=== PATIENT | male | born 1955 | race Caucasian/White ===

== ENCOUNTER → 2020-07-13 | Outpatient (CLI) | payer MEDICARE, OTHER, SELFPAY ==
--- NOTE | 2020-07-13 09:46 | EKG12_ITS ---
Test Reason : PRE SURGERY Blood Pressure : / mmHG Vent. Rate : 066 BPM Atrial Rate : 066 BPM P-R Int : 114 ms QRS Dur : 084 ms QT Int : 404 ms P-R-T Axes : 051 078 062 degrees QTc Int : 423 ms Normal sinus rhythm Normal ECG Confirmed by CARMEN DEY, JOSH ([id number]), editor book GUERRERO CROW ([id number]) on 07/14/2020 8:01:59 AM Referred By: Addi Blandon Confirmed By:JOSH MORALES MD
[2020-07-13 10:26] LABS: Hematocrit 42.7 % (40-54); Mean Corp Hgb Conc 32.8 g/dL (32-36); Mean Corpuscular Hgb 30.1 pg (27.0-32.0); Mean Corpuscular Volume 91.8 fL (80-94); Mean Platelet Vol. 10.9 fl (6.2-12.0); Platelet Count 183 K/mm3 (150-450); RBC Distribution Width CV 11.2 % (11.6-14.6); RBC Distribution Width SD 37.9 fl (35.1-43.9); Red Blood Count 4.65 M/mm3 (4.6-6.2); White Blood Count 5.5 K/mm3 (4.4-11.0)
[2020-07-13 10:42] LABS: Anion Gap 4 (5-15); BUN 18 mg/dL (7-18); BUN/Creat Ratio 18.2 RATIO (10-20); Calcium,Total 9.1 mg/dL (8.5-10.1); Chloride 104 mmol/L (98-107); Creatinine, Serum 0.99 mg/dL (0.70-1.30); EST Glomerular Filtration Rate 80 mL/min (>60); Est Glom Filt Rate - Afr Amer 97 mL/min (>60); Glucose 87 mg/dL (74-106); Potassium 4.2 mmol/L (3.5-5.1); Sodium Level 137 mmol/L (136-145)
== END | disposition home or self-care (01) ==
PROVIDERS: PCP Internal Medicine; Referring Provider Physician Assistant; Visit Provider Physician Assistant
DX: Z01.810 Encounter for preprocedural cardiovascular examination (principal); Z01.812 Encounter for preprocedural laboratory examination; Z20.822 Contact with and (suspected) exposure to COVID-19
CPT/HCPCS: 36415; 80048; 85027; 87635; 93005; C9803; U0005; U0003

== ENCOUNTER → 2021-03-15 14:08 | Outpatient (CLI) | payer MEDICARE, OTHER, SELFPAY ==
--- NOTE | 2021-03-15 14:22 | CT_ITS ---
STUDY: RIGHT SHOULDER CT SCAN REASON FOR EXAM: Male, 65 years old. PRIMARY OSTEOARTHRITIS RADIATION DOSAGE (If Supplied By Facility): CTDIvol = ( 27.47 ) mGy, DLP = ( 718.22 ) mGycm. Individualized dose optimization techniques were used for this CT.? TECHNIQUE: Axial multidetector CT scan of the right shoulder. Coronal and sagittal reformatted images were obtained. COMPARISON: None. FINDINGS: No acute fracture line. No acute dislocation. No acute bone destruction. Evidence of previous rotator cuff repair (axial image 28 series 3). Moderate acromioclavicular joint arthrosis. Mild/moderate glenohumeral joint arthrosis. Normal visualized clavicle. Normal ribs. Normal scapula. Normal coracoid. Normal acromion. Small glenohumeral joint effusion. Moderate supraspinatus and infraspinatus muscle atrophy (sagittal image 58 series 602). Lung granulomas. COPD/emphysema. CT/Extremity Upper without Contra IMPRESSION: Moderate right shoulder osteoarthritis Evidence of previous rotator cuff repair Moderate supraspinatus and infraspinatus muscle atrophy (potential chronic/recurrent rotator cuff tear) COPD/emphysema with granulomatous Small glenohumeral joint effusion Electronically Signed: Franck Harris DO at 9:20 EDT Tel , Service support ,
== END ==
PROVIDERS: PCP Internal Medicine; Referring Provider Specialist; Visit Provider Specialist
DX: M19.011 Primary osteoarthritis, right shoulder (principal)
CPT/HCPCS: 73200

== ENCOUNTER 2021-05-11 06:39 | Day surgery (SDC) | payer MEDICARE, OTHER, SELFPAY ==
--- NOTE | 2021-04-26 15:15 | HP.PCM_ITS ---
History and Physical History and Physical [facility] Patient Name: Lefty Pearl : 1955 From: [facility] PA-C DATE OF SURGERY: 05/11/2021 SCHEDULED PROCEDURE: right reverse total shoulder arthroplasty HISTORY OF PRESENT ILLNESS: Preoperative history and physical exam was performed on April 25, 2021. This is a 65-year-old male who has had ongoing pain in the right shoulder. Patient underwent a right shoulder arthroscopy with subacromial decompression, resection of distal clavicle, biceps tenotomy and repair of large rotator cuff on July 23, [address] Miguel Moe. Patient is right-hand dominant. Pain is increased with any reaching out in front or overhead. Pain is increased with any lifting. He denies any numbness and tingling. Pain is located over the anterior and lateral right shoulder. Patient has been through previous physical therapy. Patient had a MRI in December 2020 which did reveal complete full- thickness tear of a repaired supraspinatus tendon. He has tried oral prednisone and meloxicam without relief in symptoms. After failing conservative measures and discussing treatment options with Dr. Salvador Westfall, the patient does wish to proceed with a right reverse total shoulder arthroplasty. We are obtaining surgical clearance from the primary care physician Dr. Ospina. Patient denies any chest pain, shortness of breath, fevers chills or recent infections. Patient has a medical history pertinent for hypertension, hypercholesterolemia, and previous history of bipolar. REVIEW OF SYSTEMS: ROS: Const: Reports change in appetite and hard of hearing, but denies fever, vision problems and weight change. CV: Denies chest pain, heart murmur, irregular heartbeat and peripheral vascular disease. Resp: Denies asthma, cough, pneumonia, sleep apnea, SOB, tuberculosis and wheezing. GI: Denies constipation, diarrhea, difficulty swallowing, heartburn, nausea, bloody stools and vomiting. : Urinary: denies incontinence. Musculo: Denies leg swelling, limp, trouble walking and weakness. Skin: Denies Raynaud's, history of shingles and tattoo. Neuro: Denies ambulatory dysfunction, dizziness, numbness/tingling and tremor. Psych: Denies anxiety, depression, insomnia, mental illness and stress. Bran/Lymph: Denies anemia, bleeding/bruising tendency and past transfusion. Reviewed, no changes. PAST MEDICAL HISTORY: Advance Care Plan: Other Directive, LIVING WILL Effective Date: 07/12/2018 PMH: Medical Problems: High Blood Pressure, Arthritis, Hypercholesterolemia, History of Bipolar Accidents: None Surgical Hx: Fistula Removed - (2014) 2X'S Hydrocele Lumbar - (07/09/2019) RODS & SCREWS PLACED RT Shoulder, Arthroscopic Rotator Cuff Repair, ASD, Claviculectomy - (07/23/2020) [facility] @ [facility] Anesthesia Complications: None Assistive Devices: None Reviewed and updated. SOCIAL HISTORY: SH: Marital: .Occupation: Retired.Work Status: Retired.Hand Dominance: Right- handed. Personal Habits: Cigarette Use: Former.Alcohol: Occasionally.Drug Use: Former Illegal Drug User.Enjoy Exercising: Exercises 1-3 X/Week. Reviewed and updated. VITALS: Ht: 71 Wt: 190lb Wt k.184 BMI: 26.5 BP: 126/86 Pulse: 80 Resp: 14 T: 97.2 T: 36.2C Pain Level: 0 ALLERGIES: No Known Drug Allergy MEDICATIONS: Oxycodone HCL 5 mg 1-2 tab by mouth every 4 hours, Zofran 4 mg one by mouth every 8 as needed nausea, Famotidine 20 mg 1 by mouth every day, Meloxicam 15 mg 1 by mouth every day, Lisinopril 10 mg daily, Lamotrigine 200 mg 2 tabs PO daily, Aspirin 81 81 mg 1 po qd, Rosuvastatin Calcium 20 mg 1 po qd, Multi Vitamin 1po daily PRE-OP EXAM: General appearance:NORMAL Other: Eyes: Conjunctivae and lids: NORMAL Pupils: ERR Ears, Nose, Mouth, and Throat: NORMAL Other: Inspection of lips, teeth and gums: NORMAL Other: Neck: Examination of neck: no masses noted. Respiratory: Assessment of respiratory effort: NORMAL Other: Auscultation of lungs: clear to auscultation no wheezes, rhonchi or rales. Cardiovascular: Auscultation of heart: regular rate and rhythm, no murmurs, gallops or rubs. PHYSICAL EXAMINATION: Right shoulder is cool to touch. Erythema or signs of infection. Previous incisions from arthroscopy are well-healed without signs of infection. Patient has a positive Silvino deformity on the right. There is scapular dyskinesia on the right with range of motion. Range of motion: Forward elevation actively on the right 100 and passively 160, internal rotation L2 on the right and T5 on the left, external rotation 60 on the left and 40 on the right. Supraspinatus 3/5 strength on the right and 5/5 left. Sensation intact to light touch. Neurovascularly intact. IMAGING STUDIES: Previous x-rays and MRI reveal a full-thickness rotator cuff tear with previous repair consistent with secondary osteoarthritis. Muscle atrophy appreciated on MRI. IMPRESSION: 1. Right shoulder rotator cuff tear with previous repair and secondary osteoarthritis 2. Hypertension 3. Hypercholesterolemia 4. History of bipolar PLAN: Dr. Salvador Westfall did discuss and review with the patient all treatment options including surgical versus nonsurgical options. Patient does wish to proceed with the above-stated procedure. Potential risks, benefits, and complications of the procedure were discussed in detail including but not limited to , infection, nerve and blood vessel damage, persistent pain, numbness, tingling, paresthesias, blood clot, pulmonary embolism, and requirement for possible further surgery. The patient expressed full understanding and has no further questions for the doctor. Patient does agree to proceed with the above-stated procedure and has signed the surgery consent form. We discussed the current risks associated with COVID 19. This does include the risk of exposure while in the hospital. Patient was reassured local hospitals have low infection rates and are taking all necessary precautions to avoid exposure to patients. In addition, we discussed strategies that can be used to help limit exposure including those that limit the patient's time in the hospital. Also using strategies to limit the patient's need for continued in patient services after being discharged from the hospital. Patient was notified that we will need to comply with any screening or testing the hospital wishes to perform or that surgery may be delayed for any positive results. This dictation was created using voice recognition software. Phonetic and/or grammatical errors may exist. ___ I have re-examined the patient. There are no clinical changes since date of exam. ___ See progress notes for changes. ___ Dictated on admission Date: Time: Signature:
--- NOTE | 2021-05-06 11:12 | EKG12_ITS ---
Test Reason : PRE OP Blood Pressure : / mmHG Vent. Rate : 063 BPM Atrial Rate : 063 BPM P-R Int : 120 ms QRS Dur : 086 ms QT Int : 418 ms P-R-T Axes : 060 076 067 degrees QTc Int : 427 ms Normal sinus rhythm Normal ECG Confirmed by CARMEN DEY, JOSH ([id number]), food expeditor ROSA JOE ([id number]) on 05/09/2021 10:37:12 AM Referred By: Salvador Westfall Confirmed By:JOSH MORALES MD
[2021-05-06 12:17] LABS: Absolute Neutrophil Count 2.9 X10^3/uL (2.0-7.7); Basophil# 0.01 X10^3/uL; Basophil% 0.2 % (0-1); Eosinophil# 0.24 X10^3/uL; Eosinophils% 4.5 % (0-5); Hematocrit 41.5 % (40-54); Hemoglobin 13.7 g/dL (13.0-16.5); Lymphocyte % 30.2 % (19-41); Mean Corpuscular Hgb 30.4 pg (27.0-32.0); Mean Corpuscular Volume 92.2 fL (80-94); Mean Platelet Vol. 10.9 fl (6.2-12.0); Monocyte# 0.53 X10^3/uL; NRBC Flagged by Analyzer 0 % (0-5); Neutrophil # 2.91 X10^3/uL (2.7-7.7); Neutrophil % 54.9 % (47-70); Platelet Count 184 K/mm3 (150-450); RBC Distribution Width CV 10.9 % (11.6-14.6); RBC Distribution Width SD 37.2 fl (35.1-43.9); White Blood Count 5.3 K/mm3 (4.4-11.0)
[2021-05-06 12:42] LABS: Magnesium 2.2 mg/dL (1.6-2.6)
[2021-05-06 13:45] LABS: Albumin, Serum 3.7 g/dL (3.2-5.0); Anion Gap 9 (5-15); BUN 21 mg/dL (7-18); BUN/Creat Ratio 21.1 RATIO (10-20); Calcium,Total 8.9 mg/dL (8.5-10.1); Chloride 105 mmol/L (98-107); EST Glomerular Filtration Rate 79 mL/min (>60); Est Glom Filt Rate - Afr Amer 96 mL/min (>60); Glucose 91 mg/dL (74-106); Potassium 4.4 mmol/L (3.5-5.1); Sodium Level 138 mmol/L (136-145)
[2021-05-11] VITALS (13 sets, daily range): BP systolic 135–172; BP diastolic 70–97; PULSE 68–99; RESP 16–18; TEMP 35.9–36.8; O2SAT 92–97; BMI 25.4
--- NOTE | 2021-05-11 06:56 | PCM.OPRPT ---
Report of Operation Date of Procedure: 05/11/21 Pre-Operative Diagnosis: Right shoulder osteoarthritis with rotator cuff dysfunction Post-Operative Diagnosis: Right shoulder osteoarthritis with rotator cuff dysfunction Surgery/Procedure Performed:: Right reverse total shoulder replacement Description of Surgical Findings:: Stable shoulder Surgeon: Salvador Westfall sports medicine trainer: Ese Coe Type of Anesthesia: General Anesthesiologist: Franck Mcbride Special Medications: 2 g Ancef, 1 g TXA at incision, 1 g TXA closure, 10 mg Decadron Specimen's removed: Bony cuts Estimated Blood Loss (mL): 75 Fluids Replaced: 1000 ML Description of Procedure: Components used 1. Comstock reunion glenoid baseplate 2. Soumya reunion 36 mm, 6mm Glenosphere 3. Soumya reunion 36mm, 4mm humeral liner 4. Comstock reunion reverse TSA humeral adapter tray 4mm 5. Comstock reunion humeral stem primary press-fit 14mm size Brief history/Operative indications: 65 yo M with history of right shoulder pain and cuff tear arthropathy. Patient failed conservative measures as mentioned in the H&P. After discussion of risk and benefits of reverse total shoulder replacement including but not limited to blood loss, DVTs, PEs, nerve vessel damage, infection, general risk of anesthesia including loss of life, instability and stiffness patient demonstrating understanding wish to proceed was able to sign informed consent. Medical clearance was obtained. Procedure: On the date of the procedure, patient's right upper extremity was marked in the preoperative area. Patient was taken back to the operating room where they were placed on the table in the supine position. Anesthesia assumed control of the C-spine and airway, then administered anesthetic. All bony prominences were identified well-padded, the head was secured and the patient was placed in the beachchair position at about 35? inclination. Anesthesia remained in control of the C-spine airway throughout the remainder of the procedure. Patient was then appropriately fastened to the table and the right upper extremity was prepped in a sterile fashion. The surgeons then scrubbed. Upon reentering the room, the right upper extremity was draped in a sterile fashion and the incision was marked out. Timeout was called, everyone agreed upon the side, the site, the procedure to be performed, patient identity and antibiotics given. Incision was taken down through skin and subcutaneous tissue, fat down to fascia. The stripe of the deltopectoral interval and cephalic vein were identified and blunt dissection was used to retract the deltoid. The cephalic vein was retracted laterally. Clavipectoral fascia was then incised and a cobra retractor was placed in the wound. The proximal one third of the pectoralis major insertion was released. Pectoralis tendon insertion was used to tenodesed the biceps tendon which was identified in the bicipital groove. Tenodesis was done with #1 Vicryl. Proximally we followed the biceps tendon after transecting it into the rotator interval. The rotator interval was split and the arm was externally rotated. The split was 1 cm medial to the bicipital groove. Subscapularis tendon was released. We released down the anterior portion of the humeral head and a bhatti elevator was used to release the inferior portion of the humeral head. The arm was externally rotated and the shoulder was dislocated. The humeral head was then cut at its natural retroversion. Once his humeral head cut was made humerus was retracted out of the way and the glenoid was exposed. After exposing the glenoid, the labrum and the remaining proximal biceps were debrided. At this time we are able to view the entire outer edge of the glenoid. A central pin was placed we sequentially reamed over this central pin to 36mm. Once this was completed the central screw was measured and found to be. The glenoid baseplate was screwed into place. Wound was closely irrigated out with normal saline we then drilled sequentially for 2 screws. Screws were placed superiorly and inferiorly and tightened down the screws. Once the screws were appropriately tightened into place the glenoid baseplate was compressed against the exposed subchondral bone. A 36mm glenosphere was impacted into place engaging the Daugherty taper. Attention was then turned towards the humerus. The humerus was again externally rotated exposing the proximal portion of the humerus. Central canal finder was then used to open up the canal. We reamed to a 15mm reamer. We then broached to a 14mm stem. We trialed the 4mm liner, with the 4mm humeral baseplate. We obtained an adequate reduction at this time with a nice stable shoulder. Good internal rotation to the gluteus, forward elevation to 140?, external rotation to 20?. Final components were then assembled on the back table, trials were removed and the wound was copiously irrigated with normal saline after dislocating the shoulder. Once the final components were assembled they were impacted into place. Shoulder was then reduced and found to be stable with good range of motion. Subscapularis tendon was repaired using #2 FiberWire. The wound was with chlorhexidine solution then copiously irrigated out with a 1 L normal saline lavage. The deltopectoral fascia was then closed using #1 Vicryl skin was closed using 2-0 Vicryl interrupted sutures and final skin closure was done with 3-0 Monocryl. Steri-Strips are placed for final skin closure. Sterile dressing was placed patient was then placed in a sling and awakened by anesthesia. Patient was then transferred to the PACU for recovery. Postoperative plan: Patient will be admitted to the hospital overnight. They will get physical therapy starting in 2 weeks with normal postoperative regimen. Patient will be placed on aspirin 325 mg daily for DVT prophylaxis. The first postoperative appointment will be in 2 weeks for wound check and initiation of phase 1 physical therapy. During the course of the procedure the physician drug safety assistant played a vital role. His intimate knowledge of my steps in the procedure aided in safe and expedient completion of the procedure. The PA played a vital rolls in positioning particularly in obtaining the appropriate beach chair position and securing the patient's body and head to the table. The PA was also vital in the retraction of soft tissues during the exposure and especially the glenoid work as this is a vital part of the procedure to prevent neurovascular damage. the PA was also vital and protecting soft tissues during times of bony cuts and reaming. He also played a vital role in closure with my direct supervision. The PA was also important during reduction and dislocation of the joint and trials intraoperatively. Complications No intraoperative complications Admit VTE Documentation VTE Present on Admission: No VTE Mechan Device Prophylaxis: SCD's VTE Pharm Prophylaxis ordered?: Yes
[2021-05-11] MEDS: Lactated Ringers 1,000 ML 125 ML IV ×2 (07:00→12:39)
[2021-05-11] MEDS: Gabapentin 600 MG Tablet PO (07:44)
[2021-05-11] MEDS: Acetaminophen 500 MG Tablet 1000 MG PO (07:44)
[2021-05-11] MEDS: Celecoxib 200 MG Capsule 400 MG PO (07:44)
--- NOTE | 2021-05-11 08:56 | SUR.PREOP ---
Patient taken from preop room to PACU at 0855 by OR nurse to wait on [employer]GRAM[employer] availability to go back to OR. Block already in place at approximately [address] Murphy.
[2021-05-11] MEDS: Cefazolin 2 GM in 0.9% Normal Saline 100 ML IV (09:00)
[2021-05-11] MEDS: dexAMETHasone 10 MG/ML Vial IV (09:28)
[2021-05-11] MEDS: Lactated Ringers 1,000 ML 999 ML IV (11:17)
--- NOTE | 2021-05-11 11:33 | RAD_ITS ---
STUDY: X-RAY - RIGHT SHOULDER REASON FOR EXAM: Male, 65 years old. Right shoulder replacement. TECHNIQUE: 2 view(s) of the shoulder. COMPARISON: None. FINDINGS: The patient is status post right shoulder replacement. There is good alignment. RAD/Shoulder min 2 Views IMPRESSION: Status post right shoulder replacement. There is good alignment. Electronically Signed: Alfred Zhou MD at 13:31 EST , Service support ,
[2021-05-11] MEDS: Cefazolin 1 GM/50 ML BAG IV (13:33)
== END 2021-05-11 14:45 | disposition home or self-care (01) ==
LOC: SDC 06:39 → AC 06:39
PROVIDERS: Anesthesiology; PCP Internal Medicine; Referring Provider Specialist; Visit Provider Specialist
PROC: (CPT 23472; principal; 2021-05-11 08:30)
DX: M19.011 Primary osteoarthritis, right shoulder (principal); M75.121 Complete rotator cuff tear or rupture of right shoulder, not specified as traumatic; I10 Essential (primary) hypertension; E78.00 Pure hypercholesterolemia, unspecified; F31.9 Bipolar disorder, unspecified; Z96.611 Presence of right artificial shoulder joint; Z79.82 Long term (current) use of aspirin; Z79.899 Other long term (current) drug therapy; Z20.822 Contact with and (suspected) exposure to COVID-19
CPT/HCPCS: 01638; 23472; 64445; 76942; 36415; 73030; 80048; 82040; 83735; 85025; 87081; 87426; 93005; C1776; C9803; J7050; J7120; J2405